=== PATIENT | male | born 1970 | race Caucasian/White ===

== ENCOUNTER 2021-09-28 16:43 | Inpatient (IN) | payer OTHER, SELFPAY ==
[~2021-09-28] VITALS: Ht 167.6 cm; Wt 79.4 kg
[2021-09-28 16:47] VITALS: BP_SYST 157
--- NOTE | 2021-09-28 16:47 | NUR ---
Pt. came in with c/o right sided abd. pain and right sided flank pain, stated at 0300 woke up with severe pain 06/07 and waited for urgent care to open; was seen in urgent care and rec'd a call from that blood work came back showing possible infection and he needed to come to ER for CT scan, possible kidney stones or appendesitis
--- NOTE | 2021-09-28 17:40 | NUR ---
ER in triage examining patient.
--- NOTE | 2021-09-28 18:39 | NUR ---
to lab for blood draw
[2021-09-28 18:49] LABS: EOSINOPHILS # (AUTO) 0.2 K/uL (0.0-0.4); MEAN CORPUSCULAR HGB CONC 36 % (32-36)
[2021-09-28 18:58] LABS: HEMOGLOBIN 16.3 g/dL (14.0-18.0); RED BLOOD CELL COUNT(AUTO) 5.37 MIL/uL (4.2-6.2); WHITE BLOOD COUNT (AUTO) 13.8 K/uL (4.8-10.8)
[2021-09-28 18:59] LABS: MEAN CORPUSCULAR HEMOGLOBIN 30 pg (27-31); MEAN CORPUSCULAR VOLUME 86 fL (79.0-98.0); PLATELET COUNT (AUTO) 209 K/uL (130-430); RED CELL DISTRIBUTION WIDTH 13.4 % (9.0-15.0)
[2021-09-28 19:00] LABS: BASOPHILS % (AUTO) 0.2 % (0.0-2.0); EOSINOPHILS % (AUTO) 1.3 % (0.0-4.0); LYMPHOCYTES % (AUTO) 14.9 % (20.5-51.5); MONOCYTES % (AUTO) 10.3 % (1.7-9.3); NEUTROPHILS % (AUTO) 73.3 % (40.0-70.0)
[2021-09-28 19:01] LABS: LYMPHOCYTES # (AUTO) 2.1 K/uL (1.0-5.5); MONOCYTES # (AUTO) 1.4 K/uL (0.0-1.0); NEUTROPHILS # (AUTO) 10.1 K/uL (1.8-7.7)
[2021-09-28 19:16] LABS: CALCIUM 9.2 mg/dL (8.4-11.0); CREATININE 1.75 mg/dL (0.55-1.30); POTASSIUM 3.1 mmol/L (3.5-5.1)
[2021-09-28 19:21] LABS: BILIRUBIN,URINE NEGATIVE (NEGATIVE); CLARITY/URINE CLEAR (CLEAR); COLOR,URINE YELLOW (YELLOW); GLUCOSE,URINE NEGATIVE (NEGATIVE); KETONES,URINE NEGATIVE (NEGATIVE); LEUKOCYTE ESTERASE ,URINE NEGATIVE (NEGATIVE); NITRITE, URINE NEGATIVE (NEGATIVE); PROTEIN URINE NEGATIVE (NEGATIVE); UROBILINOGEN,URINE 0.2 (0.2-1.0)
[2021-09-28 19:27] LABS: ALBUMIN 4.4 g/dL (3.4-4.8); TOTAL BILIRUBIN 0.6 mg/dL (0.0-1.0)
[2021-09-28 19:31] LABS: BLOOD, URINE TRACE (NEGATIVE)
[2021-09-28 19:58] LABS: BACTERIA,URINE FEW /HPF (None Seen); RBC,URINE 0-3 /HPF (0-3); WBC,URINE NONE SEEN /HPF (0-3)
[2021-09-28] MEDS ORDERED: NACL 0.9% 1,000 ML IV ONE ×2 (22:00→22:15)
[2021-09-28] MEDS ORDERED: cefTRIAXone 1 GM in D5W 50 ML IV ONE (23:15)
[2021-09-29] MEDS ORDERED: D5NS 1,000 ML IV SCH
[2021-09-29] MEDS ORDERED: cefTRIAXone 1 GM VIAL ONE (00:31)
--- NOTE | 2021-09-29 00:40 | NUR ---
# 20 gauge angiocath placed to right forearm. Use of asceptic technique. Opsite placed over site. Blood return noted. Flushed with 10 cc of normal saline. No evidence of infiltration noted. Patient tolerated well.
[2021-09-29] MEDS ORDERED: DIPHENHYDRAMINE INJ 50 MG/ML VIAL IVP ONE (02:30)
[2021-09-29] MEDS ORDERED: MORPHINE 2 MG/ML INJ. SYRINGE IVP ONE (02:30)
[2021-09-29] MEDS ORDERED: MORPHINE 2 MG/ML INJ. SYRINGE ONE (02:31)
--- NOTE | 2021-09-29 02:36 | NUR ---
patient medicated as ordered. will observe for any adverse reaction. bed to low position sr up, continue to monitor.
--- NOTE | 2021-09-29 06:31 | NUR ---
Pt denies c/o pain or discomfort, no needs verbalized at this time. Urinal emptied with 600 mL clear yellow U/O.
--- NOTE | 2021-09-29 07:10 | NUR ---
REPORT RECEIVED FROM SATURNINO PARKER FOR CONTINUING CARE
--- NOTE | 2021-09-29 07:30 | NUR ---
PT RESTING IN [facility] AAOX4, DENIES ANY PAIN AT THIS TIME, NO DISTRESS, V/S STABLE
[2021-09-29] MEDS ORDERED: HYDROcodone/ACETAMIN 7.5-325 MG TAB PO PRN (08:15)
[2021-09-29] MEDS ORDERED: DOCUSATE SODIUM 100 MG/10 ML UDC PO PRN (08:15)
[2021-09-29] MEDS ORDERED: guaiFENesin/DEXTROMETHORPHAN 10 ML UDC PO PRN (08:15)
[2021-09-29] MEDS ORDERED: ZOLPIDEM TARTRATE 5 MG TABLET PO PRN (08:15)
[2021-09-29] MEDS ORDERED: ACETAMINOPHEN 500 MG TABLET PO PRN (08:15)
[2021-09-29] MEDS ORDERED: MORPHINE 2 MG/ML INJ. SYRINGE IVP PRN (08:15)
[2021-09-29] MEDS ORDERED: ONDANSETRON HCL 4 MG/2 ML VIAL IVP PRN (08:15)
[2021-09-29] MEDS: NACL 0.9% 1,000 ML IV SCH (08:29)
--- NOTE | 2021-09-29 08:56 | NUR ---
LAB AT THE BEDSIDE FOR BLOOD DRAW
--- NOTE | 2021-09-29 09:05 | NUR ---
CALL TO DIETARY FOR BREAKFAST TRAY
[2021-09-29 09:53] LABS: BASOPHILS # (AUTO) 0.1 K/uL (0.0-0.2); BASOPHILS % (AUTO) 0.6 % (0.0-2.0); EOSINOPHILS # (AUTO) 0.3 K/uL (0.0-0.4); EOSINOPHILS % (AUTO) 3.3 % (0.0-4.0); HEMATOCRIT 41.4 % (36-54); HEMOGLOBIN 14.8 g/dL (14.0-18.0); LYMPHOCYTES % (AUTO) 31.7 % (20.5-51.5); MEAN CORPUSCULAR HEMOGLOBIN 31 pg (27-31); MEAN CORPUSCULAR HGB CONC 36 % (32-36); MEAN CORPUSCULAR VOLUME 86 fL (79.0-98.0); MONOCYTES # (AUTO) 1.1 K/uL (0.0-1.0); MONOCYTES % (AUTO) 11.5 % (1.7-9.3); NEUTROPHILS % (AUTO) 52.9 % (40.0-70.0); PLATELET COUNT (AUTO) 178 K/uL (130-430); RED CELL DISTRIBUTION WIDTH 13.7 % (9.0-15.0); WHITE BLOOD COUNT (AUTO) 9.5 K/uL (4.8-10.8)
--- NOTE | 2021-09-29 10:06 | NUR ---
PT PROVIDED WITH BREAKFAST TRAY
[2021-09-29 10:28] LABS: CALCIUM 8.2 mg/dL (8.4-11.0); CREATININE 1.22 mg/dL (0.55-1.30); FREE T4 (FREE THYROXINE) 0.8 ng/dL (0.6-1.6); PHOSPHORUS 2.9 mg/dL (2.7-4.5); THYROID STIMULATING HORMONE 5.55 uIu/mL (0.34-4.82)
[2021-09-29 10:44] LABS: PROTHROMBIN TIME 10.2 SECS (9.5-12.5)
--- NOTE | 2021-09-29 10:44 | NUR ---
PT PROVIDED WITH ORAL HYGIENE SUPPLIES, UP TO BRUSH TEETH, AAOX4, AMBULATES WITH STEADY GAIT
[2021-09-29] MEDS ORDERED: POTASSIUM CHLORIDE 20 MEQ TAB.PRT.SR ONE (10:49)
[2021-09-29] MEDS ORDERED: SIMV10TA97 PO (11:01)
[2021-09-29] MEDS ORDERED: ATEN50TA PO (11:01)
[2021-09-29] MEDS ORDERED: LEVO125T PO (11:01)
--- NOTE | 2021-09-29 11:01 | NUR ---
Medication reconciliation completed with information provided by PT. Any prior medication reconciliation on file was reviewed and corrected.
--- NOTE | 2021-09-29 12:18 | NUR ---
SW FOR STATUS UPDATE. PT INFORMED AND PROVIDED WITH LUNCH TRAY
--- NOTE | 2021-09-29 12:53 | NUR ---
ATTEMPTED TO GIVE REPORT TO MED SURG STAFF, THEY WILL CALL WHEN THEY CAN RECEIVE REPORT. HOUSE SUP NOTIFIED.
--- NOTE | 2021-09-29 12:56 | NUR ---
Patient will be admitted to care of DR. KIDD . Admitted to [facility] unit. Will go to room 124A. Belongings list completed. Complete and up to date summary report printed. SBAR report to be given at bedside with opportunity for questions.
--- NOTE | 2021-09-29 12:58 | NUR ---
REPORT GIVEN TO KEE. PT TAKEN TO [facility] VIA WHEELCHAIR
[2021-09-29 13:31] VITALS: BP_SYST 113
--- NOTE | 2021-09-29 15:37 | NUR ---
1300 arrived from ED, via wheelchair, alert, oriented, appropriate. Walked to the bed, steady gait. denied pain at this time, " i feel fine, wondering when can i go home, this evening" made aware he has consultation for both nephrology, and urology first, then we "ll go from there. IVF initiated gently at 60cc/per hour, AND drug screen on the way, when he is able to urinate.
--- NOTE | 2021-09-29 18:23 | NUR ---
seen both by urology, and nephro today, urine for drug screen collected, and to lab. Need to challenge gently with ivf, all explained, verbalized understanding. per attending and cleared from urology perspective, possible for discharge in am.
[2021-09-29 19:21] LABS: BARBITURATE, URINE NEGATIVE (NEG <=200); BENZODIAZEPINE, URINE NEGATIVE (NEG <=150); CANNABINOID, URINE NEGATIVE (NEG <=50); COCAINE, URINE NEGATIVE (NEG <=150); METHAMPHETAMINES SCREEN,URINE NEGATIVE (NEG <=500); PHENCYCLIDINE SCREEN,URINE NEGATIVE (NEG <=25); URINE AMPHETAMINE NEGATIVE (NEG <=500); URINE METHADONE NEGATIVE (NEG <=200)
[2021-09-29 19:22] LABS: OPIATE, URINE POSITIVE (NEG <=100); UR TRICYCLIC ANTIDEPRESSANTS NEGATIVE (NEG <=300); URINE OXYCODONE SCREEN NEGATIVE (NEG <=100); URINE PROPOXYPHENE SCREEN NEGATIVE (NEG <=300)
--- NOTE | 2021-09-29 19:30 | NUR ---
Opening note Received report from day shift. Pt is awake resting in bed. No s/s of respiratory distress. Breathing even and unlabored on RA. IV site is intact and patent with fluids running at ordered rate. Fall and safety precautions in place with bed in lowest position and call light within reach
[2021-09-29 20:00] VITALS: BP_SYST 119
[2021-09-30 00:07] VITALS: BP_SYST 130
--- NOTE | 2021-09-30 00:15 | NUR ---
Rounds Pt sleeping. No s/s of acute distress. Fall and safety checks in place
[2021-09-30] MEDS: NACL 0.9% 1,000 ML IV SCH (00:55)
--- NOTE | 2021-09-30 06:55 | NUR ---
Closing note Pt awake sitting up in bed. No s/s of respiratory distress. Breathing even and unlabored. IV site is intact and patent with fluids running at ordered rate. All needs met throughout shift. Fall and safety precautions in place with bed in lowest position and call light within reach
[2021-09-30 07:23] LABS: BASOPHILS % (AUTO) 0.3 % (0.0-2.0); EOSINOPHILS # (AUTO) 0.4 K/uL (0.0-0.4); EOSINOPHILS % (AUTO) 4.7 % (0.0-4.0); HEMATOCRIT 42.3 % (36-54); HEMOGLOBIN 15.1 g/dL (14.0-18.0); LYMPHOCYTES # (AUTO) 2.6 K/uL (1.0-5.5); LYMPHOCYTES % (AUTO) 28.2 % (20.5-51.5); MEAN CORPUSCULAR HEMOGLOBIN 31 pg (27-31); MEAN CORPUSCULAR HGB CONC 36 % (32-36); MEAN CORPUSCULAR VOLUME 86 fL (79.0-98.0); MONOCYTES # (AUTO) 0.9 K/uL (0.0-1.0); MONOCYTES % (AUTO) 10.1 % (1.7-9.3); NEUTROPHILS # (AUTO) 5.2 K/uL (1.8-7.7); NEUTROPHILS % (AUTO) 56.7 % (40.0-70.0); PLATELET COUNT (AUTO) 185 K/uL (130-430); RED BLOOD CELL COUNT(AUTO) 4.92 MIL/uL (4.2-6.2); RED CELL DISTRIBUTION WIDTH 13.2 % (9.0-15.0); WHITE BLOOD COUNT (AUTO) 9.2 K/uL (4.8-10.8)
[2021-09-30 07:52] LABS: CALCIUM 8.7 mg/dL (8.4-11.0); CREATININE 1.06 mg/dL (0.55-1.30); POTASSIUM 3.1 mmol/L (3.5-5.1)
[2021-09-30 08:00] VITALS: BP_SYST 124
--- NOTE | 2021-09-30 08:00 | NUR ---
Initial notes Awake, ambulate, denies any pain or discomfort. Wants to go home. Instructed patient to wait for MD a little bit. Verbalize understanding. Will monitor.
[2021-09-30] MEDS ORDERED: POTASSIUM CHLORIDE 20 MEQ TAB.PRT.SR PO PRN (09:00)
[2021-09-30] MEDS ORDERED: TAMS-11 PO (11:23)
[2021-09-30] MEDS ORDERED: POTASSIUM CHLORIDE 20 MEQ TAB.PRT.SR PO ONE (11:30)
[2021-09-30 11:35] VITALS: BP_SYST 124
--- NOTE | 2021-09-30 11:55 | NUR ---
discharge pt home, ambulatory. denies any pain or discomfort. discharge instruction discussed with patient. IVL removed.
--- NOTE | 2021-09-30 13:26 | NUR ---
Dietitian Recommendations *Continue Cardiac diet. Please see Nutritional Assessment for details. CAROLE, RD
== END 2021-09-30 12:00 | disposition home or self-care (01) | DRG 871 ==
LOC: SED 16:43 → SMU 23:54
PROVIDERS: ADMIT Internal Medicine Hospice and Palliative Medicine; ATTEND Internal Medicine Hospice and Palliative Medicine
DX: A41.9 Sepsis, unspecified organism (principal); N17.0 Acute kidney failure with tubular necrosis; N13.6 Pyonephrosis; E11.9 Type 2 diabetes mellitus without complications; Z20.822 Contact with and (suspected) exposure to COVID-19; E78.5 Hyperlipidemia, unspecified; I10 Essential (primary) hypertension; E87.6 Hypokalemia; Z87.442 Personal history of urinary calculi
CPT/HCPCS: 36415; 76376; 80048; 80053; 80061; 80307; 81000; 82150; 83036; 83605; 83690; 83735; 83880; 84100; 84439; 84443; 84484; 85025; 85610-TC; 85730-TC; 87086; 93005; 96361; 96365; 96375; 99285; J0696; J1200; J2270